=== PATIENT | male | born 1985 | race Caucasian/White ===

== ENCOUNTER 2021-01-17 11:52 | Emergency (ER) | payer OTHER, SELFPAY ==
[2021-01-17 12:29] VITALS: BP 104/86; PULSE 96; RESP 18; TEMP 37.1; O2SAT 98
[2021-01-17 14:39] VITALS: BP 122/81; PULSE 82; O2SAT 92
--- NOTE | 2021-01-17 15:01 | PC.NURSE ---
1500 pt and daughter at intake desk stating they were going to leave ,pt had animals at home that needed fed. pt ambulated out of ED with steady gait
[2021-01-17 15:16] VITALS: BP 137/84; PULSE 84; RESP 16; TEMP 36.7; O2SAT 98
--- NOTE | 2021-01-17 17:32 | ED.UPPEXIN ---
HPI - Extremity Injury (Upper) General Chief Complaint: Extremity Injury, Upper Stated Complaint: L Finger Swelling, ring stuck on finger Time Seen by Provider: 01/17/21 15:13 Source: patient Mode of arrival: ambulatory Limitations: no limitations History of Present Illness HPI narrative: This is a 35-year-old male that presents to the emergency department with a ring stuck on finger. Reports he sustained a laceration of the left fourth finger about a week ago. Yesterday the finger started to get red and swollen. Today he was unable to remove the ring on the finger which prompted him to be seen. Denies fever, decreased range of motion, or numbness. Related Data Allergies Allergy/AdvReac Type Severity Reaction Status Date / Time No Known Allergies Allergy Unverified 04/04/18 04:59 Review of Systems Review of Systems: CONSTITUTIONAL: Denies fever SKIN: Reports redness MUSCULOSKELETAL: Denies joint pain, or myalgia. NEUROLOGIC: Denies numbness All systems reviewed & are unremarkable except as noted in HPI and below PMFSH Past Medical History Medical History (Updated 01/17/21 @ 17:42 by Kathy Carranza PA-C) No active medical problems Social History Social History (Updated 01/17/21 @ 17:35 by Kathy Carranza PA-C) Substance use: never Exam Narrative: GENERAL: Well-appearing, well-nourished, and in no acute distress. HEAD: Normocephalic, atraumatic. EYES: EOMI. EXTREMITIES: Normal range of motion. Left fourth finger with 1 cm linear laceration that appears healing. Mild surrounding redness and swelling, no abnormal drainage or fluctuance SKIN: Warm, dry, no rash. NEURO: No focal deficits. Alert and oriented x3. PSYCH: Normal mood and affect Course Vital Signs Vital signs: Vital Signs Temperature 98.8 F 01/17/21 12:29 Pulse Rate 96 01/17/21 12:29 Respiratory Rate 18 01/17/21 12:29 Blood Pressure 104/86 01/17/21 12:29 Pulse Oximetry 98 01/17/21 12:29 Temperature 98.0 F 01/17/21 15:16 Pulse Rate 84 01/17/21 15:16 Respiratory Rate 16 01/17/21 15:16 Blood Pressure 137/84 01/17/21 15:16 Pulse Oximetry 98 01/17/21 15:16 Procedures Other Procedure Procedure 1: Other Procedure: Ring removed using ring cutters MDM - Extremity Injury (Upper) MDM Narrative Medical decision making narrative: Patient presents to the emergency department for ring stuck on his left fourth finger. Ring was able to be removed. He does have a laceration that is healing with some mild surrounding redness and swelling. Patient will be started on oral antibiotic. He is to follow-up with primary care doctor. He was given warnings to return to the ER Critical Care Time Critical Care Time Critical Care Time: No Discharge Plan Discharge Clinical Impression: Cellulitis Qualifiers: Site of cellulitis: extremity Site of cellulitis of extremity: finger Laterality: left Qualified Code(s): L03.012 - Cellulitis of left finger Patient Disposition: Home, Self-Care Condition: Stable Instructions: Antibiotic Form, Cellulitis (ED) Additional Instructions: Return if symptoms worsen or concerns: any increase in redness, swelling, pain, or fever over 101 Take antibiotics as directed. Clean wound with mild soapy water. Apply antibiotic ointment and clean dressing at least three times daily. Follow up with primary care in the next 2-3 days for re-evaluation Prescriptions: New sulfamethoxazole-trimethoprim [Bactrim DS] 800-160 mg tablet 1 tablet PO Q12H 7 Days Qty: 14 RF: 0 Follow-up/Referrals: PHYSICIAN,[employer]PROUS CHLORIDE OPERATOR [Primary Care Provider] - Timmy Laguna DO [Physician] - 3 Days
[2021-01-17 18:06] VITALS: BP 167/74; PULSE 76; RESP 16; TEMP 36.7; O2SAT 97
== END 2021-01-17 18:12 | disposition home or self-care (01) ==
PROVIDERS: Emergency Provider Emergency Medicine
DX: L03.012 Cellulitis of left finger (principal)
CPT/HCPCS: 99283; A9270

== ENCOUNTER 2021-12-10 20:24 | Emergency (ER) | payer SELFPAY ==
[2021-12-10 20:27] VITALS: BP 153/94; PULSE 128; RESP 18; TEMP 35.7; O2SAT 100
--- NOTE | 2021-12-10 22:00 | PC.NURSE ---
No answer x 2 in waiting room
== END 2021-12-10 22:00 | disposition left against medical advice (07) ==
DX: L08.9 Local infection of the skin and subcutaneous tissue, unspecified (principal)
CPT/HCPCS: 99199